=== PATIENT | female | born 1940 | race Caucasian/White ===

== ENCOUNTER → 2022-12-23 | Outpatient (CLI) | payer MEDICARE ==
--- NOTE | 2022-12-27 14:42 | MR ---
EXAMINATION TYPE: MR brain wo/w [facility], [place] DATE OF EXAM: 12/23/2022 COMPARISON: None HISTORY: 82-year-old female Headaches, weakness/numbness TECHNIQUE: Multiplanar, multisequence images of the brain and brainstem is performed without and with IV contrast, utilizing 9 mL intravenous Gadavist . Diffusion-weighted imaging was performed. Additio nal multiplanar, multisequence images of the cervical spine without contrast. FINDINGS: BRAIN: Diffusion weighted images demonstrate no evidence of a recent infarct or other diffusion abnormality. There is no extra-axial fluid collection There is mild generalized supratentorial volume loss. No hydrocephalus. T2/FLAIR weighted sequences show moderate patchy confluence right white matter change in both cerebra l hemispheres within the subcortical, deep, and periventricular white matter regions of both cerebral hemispheres. The most and fluid changes in the bilateral periatrial white matter measuring up to 3.1 cm. Partially empty sella. Otherwise, midline structures demonstrate normal morphology. The craniocervic al junction appears within normal limits. Post contrast images demonstrate no abnormal enhancement. The dural venous sinuses appear patent. There is moderate mucosal thickening within the ethmoid air cells. Leftward nasal septal deviation. G lobes are intact. CERVICAL SPINE: No craniocervical junction everybody, predental space widening, or prevertebral soft tissue swelling. Fairly advanced degenerative change along the left lateral C1-C2 lateral mass articulation. There is moderate to advanced multilevel disc/endplate degenerative change as well as hypertrophic fa cet and uncovertebral joint arthropathy. Scattered areas of ligamentum flavum thickening are present throughout. Heterogeneous marrow signal likely relating to a mixed Modic endplate change. In addition, there is a fatty matrix hemangioma within the C7 vertebral body. Retropharyngeal course of the ICAs. There is degenerative grade 1 anterolisthesis C7-T1, T1-T2, T2-T3. At C2-C3, disc osteophyte complex with uncovertebral joint and facet arthropathy as well as ligamentu m flavum thickening contribute to mild narrowing of the spinal canal with abutment and slight flatten ing of the dorsal cord there is moderate to severe left and severe right neural foraminal stenosis. At C3-C4, hypertrophic facet and uncovertebral joint arthropathy contribute to moderate left neurofor aminal stenosis. No significant spinal canal stenosis. At C4-C5, ligamentum flavum thickening with broad-based disc osteophyte complex as well as uncoverteb ral joint and facet arthropathy. There is severe left and moderate to severe right neural foraminal s tenosis. Mild overall narrowing of the spinal canal. At C5-C6, ligamentum flavum thickening with disc osteophyte complex and severe hypertrophic facet and uncovertebral joint arthropathy. There is severe left and moderate right neural foraminal stenosis. Moderate spinal canal stenosis with abutment and flattening of both the dorsal and ventral cord. At C6-C7, there is ligamentum flavum thickening with broad-based disc osteophyte complex as well as h ypertrophic facet and uncovertebral joint arthropathy, greater on the right. Changes result in severe right and moderate left neuroforaminal stenosis. Moderate spinal canal stenosis with abutment and fl attening of both the dorsal and ventral cord. At C7-T1, there is hypertrophic facet arthropathy with grade 1 anterolisthesis. Posterior disc bulge. This impresses on the ventral thecal sac without significant spinal canal stenosis. Mild to moderate right and mild left foraminal stenosis. Some patchy artifact projects over the port on the sagittal T2 series. Not confirmed on the axial T2 series. COMBINED IMPRESSION: BRAIN: 1. Mild generalized atrophy. No acute intracranial abnormality seen. 2. Moderate burden of T2 bright white matter changes, nonspecific. Typically relating to chronic smal l vessel ischemic disease. Chronic migraines, hypertension, and demyelinating disease are additional differential considerations. 3. No enhancing intracranial lesions. 4. Moderate chronic ethmoid sinus disease. CERVICAL SPINE: 5. Advanced multilevel spondylotic changes throughout the cervical spine with mixed Modic endplate ch anges. Ligamentum flavum thickening and severe facet/uncovertebral joint arthropathy is present. 6. Degenerative grade 1 anterolisthesis C7-T1, T1-T2, and T2-T3. 7. Changes result in moderate spinal canal stenosis at C5-C6 and C6-C7 with abutment and flattening o f both the dorsal and ventral cord. No definite myelopathic cord signal change. 8. Mild narrowing of the spinal canal at the other levels.
== END | disposition home or self-care (01) ==
LOC: RADMRIMAIN 12:10
PROVIDERS: ATTEND Neurological Surgery
DX: M47.812 Spondylosis without myelopathy or radiculopathy, cervical region (principal); M99.71 Connective tissue and disc stenosis of intervertebral foramina of cervical region; M43.13 Spondylolisthesis, cervicothoracic region; G50.0 Trigeminal neuralgia; R51.9 Headache, unspecified
CPT/HCPCS: 70553; 72141; A9585